=== PATIENT | male | born 1995 | race Hispanic/Latino ===

== ENCOUNTER → 2024-05-10 | Outpatient (CLI) | payer OTHER ==
[~2024-05-10] VITALS: Ht 180.3 cm; Wt 123.6 kg
[~2024-05-10] MED LIST: GABAPENTIN PO; TRAZODONE PO
[2024-05-10 09:55] VITALS: BP 106/65; PULSE 56; RESP 16; TEMP 97.9
== END | disposition home or self-care (01) ==
LOC: DAH 10:00 → EDSTATUS 15:00
PROVIDERS: ATTEND Podiatrist
DX: Z01.818 Encounter for other preprocedural examination (principal); M93.20 Osteochondritis dissecans of unspecified site; F41.9 Anxiety disorder, unspecified; F32.A Depression, unspecified; G47.00 Insomnia, unspecified; E66.9 Obesity, unspecified; Z53.8 Procedure and treatment not carried out for other reasons
CPT/HCPCS: A6260